=== PATIENT | female | born 1960 | race Caucasian/White ===

== ENCOUNTER 2025-03-09 06:35 | Observation (INO) | payer MEDICARE, MEDICAID ==
[~2025-03-09] VITALS: Ht 170.2 cm; Wt 68.2 kg
[2025-03-09 07:28] LABS: PLATELET COUNT (AUTO) 214 K/uL (150-450); RED BLOOD CELL COUNT(AUTO) 3.58 MIL/uL (4.00-5.20); RED CELL DISTRIBUTION WIDTH 13.3 % (11.5-14.5); WHITE BLOOD COUNT (AUTO) 5.3 K/uL (4.5-11.0)
[2025-03-09] MEDS: METOCLOPRAMIDE HCL 5 MG/ML 2 ML VIAL IVP ONE (07:29)
[2025-03-09] MEDS: SODIUM CHLORIDE 0.9% 1,000 ML IV ONE ×2 (07:29→12:16)
[2025-03-09 07:34] LABS: CALCIUM, TOTAL 8.5 mg/dL (8.8-10.5); CREATININE 1.60 mg/dL (0.60-1.30); GLOMERULAR FILTR. RATE CALC 32 mL/min (>60); GLUCOSE,RANDOM 171 mg/dL (70-110); SODIUM SERUM 137 mmol/L (136-145); UREA NITROGEN, BLOOD 33 mg/dL (7-18)
[2025-03-09 07:41] LABS: ASPARTATE AMINOTRANSFERASE 38.0 U/L (15-37); TOTAL PROTEIN, SERUM 6.8 g/dL (6.4-8.2)
[2025-03-09 07:46] LABS: TROPONIN I-HIGH SENSITIVITY 42 ng/L (<51)
[2025-03-09] MEDS ORDERED: SODIUM CHLORIDE 0.9% 1,000 ML IV ONE (10:15)
[2025-03-09] MEDS ORDERED: MAGNESIUM HYDROXIDE SUSPENSION 30 ML UDCUP PO PRN (10:15)
[2025-03-09] MEDS: SODIUM CHLORIDE 0.9% 1,000 ML IV SCH (10:30)
[2025-03-09] MEDS ORDERED: ALBUTEROL SULFATE 2.5 MG/0.5 ML NEB SOLUTION NEB PRN (10:45)
[2025-03-09 11:05] VITALS: BP 149/86; PULSE 95; RESP 20; TEMP 97.3; O2SAT 98
[2025-03-09] MEDS: ONDANSETRON HCL 4 MG/2 ML VIAL IVP PRN (12:15)
[2025-03-09] MEDS: METOCLOPRAMIDE HCL 5 MG/ML 2 ML VIAL IVP PRN (13:10)
[2025-03-09 16:00] VITALS: BP 132/88; PULSE 98; RESP 20; TEMP 98.2; O2SAT 97
[2025-03-09] MEDS: HEPARIN SODIUM,PORCINE 5,000 UNITS/ML VIAL SQ SCH (16:06)
[2025-03-09 20:29] VITALS: BP 119/81; PULSE 96; RESP 18; TEMP 98.1; O2SAT 96
[2025-03-10 04:46] VITALS: BP 146/84; PULSE 91; RESP 18; TEMP 97.5; O2SAT 97
[2025-03-10] MEDS: ACETAMINOPHEN 325 MG TABLET PO PRN (04:50)
[2025-03-10 08:02] VITALS: BP 132/86; PULSE 90; RESP 20; TEMP 98.4; O2SAT 95
[2025-03-10] MEDS: PANTOPRAZOLE SODIUM 40 MG/VIAL IVP SCH (09:03)
== END 2025-03-10 09:33 | disposition home or self-care (01) ==
LOC: EMS 06:35 → INTOOBSV 10:12 → EDH 10:12 → 4E 11:57
PROVIDERS: ADMIT Internal Medicine; ATTEND Internal Medicine
DX: R11.2 Nausea with vomiting, unspecified (principal); C22.9 Malignant neoplasm of liver, not specified as primary or secondary; C34.90 Malignant neoplasm of unspecified part of unspecified bronchus or lung; J44.9 Chronic obstructive pulmonary disease, unspecified; F31.9 Bipolar disorder, unspecified; I12.9 Hypertensive chronic kidney disease with stage 1 through stage 4 chronic kidney disease, or unspecified chronic kidney disease; N18.9 Chronic kidney disease, unspecified; N17.9 Acute kidney failure, unspecified; Z96.649 Presence of unspecified artificial hip joint; Z87.891 Personal history of nicotine dependence; Z79.899 Other long term (current) drug therapy; Z98.890 Other specified postprocedural states
CPT/HCPCS: 99219 ×2; 96372 ×2; 96361 ×3; 80048; 80076; 83690; 84484; 85025; 36415; 71045; 96375 ×3; 96376 ×2; 99285; 93005; 96374; J1630; J2765; J2405 ×2; J1644 ×2; J7030; J2470; G0378

== ENCOUNTER 2025-03-14 19:02 | Inpatient (IN) | payer MEDICARE, MEDICAID ==
[~2025-03-14] VITALS: Ht 172.7 cm; Wt 68.9 kg
[2025-03-14] MEDS ORDERED: 0.9% SODIUM CHLORIDE 10 ML SYRINGE IVP PRN (19:15)
[2025-03-14] MEDS: SODIUM CHLORIDE 0.9% 1,950 ML IV ONE (19:34)
[2025-03-14] MEDS: ACETAMINOPHEN 1000 MG/ISO-OSM 100 ML IV ONE (19:34)
[2025-03-14] MEDS: CEFEPIME HCL 2 GM in DEXTROSE 5%-WATER 50 ML IV ONE (19:39)
[2025-03-14] MEDS: VANCOMYCIN 1.25 GM/WATER(PEG) 250 ML IV ONE (19:39)
[2025-03-14 19:47] LABS: RED BLOOD CELL COUNT(AUTO) 2.75 MIL/uL (4.00-5.20); RED CELL DISTRIBUTION WIDTH 13.3 % (11.5-14.5)
[2025-03-14 19:55] LABS: CALCIUM, TOTAL 8.2 mg/dL (8.8-10.5); CREATININE 1.56 mg/dL (0.60-1.30); GLOMERULAR FILTR. RATE CALC 33 mL/min (>60); GLUCOSE,RANDOM 123 mg/dL (70-110); SODIUM SERUM 135 mmol/L (136-145); UREA NITROGEN, BLOOD 24 mg/dL (7-18)
[2025-03-14 19:57] LABS: PLATELET COUNT (AUTO) 18 K/uL (150-450); WHITE BLOOD COUNT (AUTO) 0.6 K/uL (4.5-11.0)
[2025-03-14 20:02] LABS: ASPARTATE AMINOTRANSFERASE 47 U/L (15-37); CREATINE KINASE, TOTAL ONLY 39 U/L (26-192); TOTAL PROTEIN, SERUM 5.9 g/dL (6.4-8.2)
[2025-03-14 20:06] LABS: LACTIC ACID 1.0 mmol/L (0.4-2.0); TROPONIN I-HIGH SENSITIVITY 9 ng/L (<51)
[2025-03-14 20:16] LABS: BAND NEUTROPHILS % (MANUAL) 4 % (0-5); LYMPHOCYTES % (MANUAL) 65 % (22-44); MONOCYTES % (MANUAL) 5 % (2-9); SEGMENTED NEUTROPHILS % 26 % (40-70)
[2025-03-14 20:28] LABS: INFLUENZA TYPE A NEGATIVE FOR TYPE A (NEGATIVE); INFLUENZA TYPE B NEGATIVE FOR TYPE B (NEGATIVE)
[2025-03-15 00:30] VITALS: BP 94/59; PULSE 78; RESP 18; TEMP 98.1; O2SAT 97
[2025-03-15] MEDS: *CLINICAL-CEFEPIME DOSING CLINICAL ONE (01:41)
[2025-03-15] MEDS ORDERED: ALBUTEROL SULFATE 2.5 MG/0.5 ML NEB SOLUTION NEB PRN (01:45)
[2025-03-15] MEDS ORDERED: BISACODYL 10 MG RECTAL RECTAL SUPPOSITORY PR PRN (01:45)
[2025-03-15] MEDS ORDERED: MAGNESIUM HYDROXIDE SUSPENSION 30 ML UDCUP PO PRN (01:45)
[2025-03-15] MEDS ORDERED: ZOLPIDEM TARTRATE 5 MG TABLET PO PRN (01:45)
[2025-03-15] MEDS ORDERED: ACETAMINOPHEN 325 MG TABLET PO PRN (01:45)
[2025-03-15] MEDS ORDERED: HYDROCODONE/ACETAMINOPHEN 5-325 MG TABLET PO PRN (01:45)
[2025-03-15] MEDS ORDERED: IPRATROPIUM BROMIDE 0.5 MG/2.5 ML NEB SOLUTION NEB PRN (01:45)
[2025-03-15] MEDS ORDERED: MORPHINE SULFATE 4 MG/ML SYRINGE IVP PRN (01:45)
[2025-03-15 04:30] VITALS: BP 113/70; PULSE 92; RESP 18; TEMP 98.7; O2SAT 97
[2025-03-15 06:29] LABS: CALCIUM, TOTAL 7.6 mg/dL (8.8-10.5); CREATININE 1.56 mg/dL (0.60-1.30); GLOMERULAR FILTR. RATE CALC 33.0 mL/min (>60); GLUCOSE,RANDOM 131.0 mg/dL (70-110); SODIUM SERUM 136.0 mmol/L (136-145); UREA NITROGEN, BLOOD 22.0 mg/dL (7-18)
[2025-03-15 09:02] VITALS: BP 105/58; PULSE 89; RESP 18; TEMP 98.4; O2SAT 98
[2025-03-15] MEDS ORDERED: SODIUM CHLORIDE 0.9% 250 ML IV ONE (10:16)
[2025-03-15] MEDS: DOCUSATE SODIUM 100 MG CAPSULE PO SCH (10:21)
[2025-03-15] MEDS: PANTOPRAZOLE SODIUM 40 MG/VIAL IVP SCH (10:22)
[2025-03-15] MEDS: HEPARIN SODIUM,PORCINE 5,000 UNITS/ML VIAL SQ SCH (10:22)
[2025-03-15] MEDS: CEFEPIME HCL 2 GM in DEXTROSE 5%-WATER 50 ML IV SCH (10:23)
[2025-03-15] MEDS: VANCOMYCIN 1GM/WATER(PEG/NADA) 200 ML IV SCH (11:57)
[2025-03-15 12:26] VITALS: BP 102/63; PULSE 90; RESP 18; TEMP 98.6; O2SAT 95
[2025-03-15 16:14] VITALS: BP 121/79; PULSE 103; RESP 18; TEMP 98.2; O2SAT 97
[2025-03-15 20:00] VITALS: BP 97/64; PULSE 92; RESP 18; TEMP 98.2; O2SAT 95
[2025-03-15] MEDS: ONDANSETRON HCL 4 MG/2 ML VIAL IVP PRN (20:38)
[2025-03-16] VITALS: BP 93/55; PULSE 94; RESP 18; TEMP 98.6; O2SAT 95
[2025-03-16 04:00] VITALS: BP 112/76; PULSE 75; RESP 18; TEMP 98.6; O2SAT 95
[2025-03-16 08:03] LABS: CALCIUM, TOTAL 8.1 mg/dL (8.8-10.5); CREATININE 1.62 mg/dL (0.60-1.30); GLOMERULAR FILTR. RATE CALC 32.0 mL/min (>60); GLUCOSE,RANDOM 109.0 mg/dL (70-110); SODIUM SERUM 136.0 mmol/L (136-145); UREA NITROGEN, BLOOD 21.0 mg/dL (7-18)
[2025-03-16 09:00] VITALS: BP 136/82; PULSE 98; RESP 18; TEMP 97.5; O2SAT 96
[2025-03-16 09:51] LABS: PLATELET COUNT (AUTO) 24 K/uL (150-450); RED BLOOD CELL COUNT(AUTO) 2.58 MIL/uL (4.00-5.20); RED CELL DISTRIBUTION WIDTH 13.4 % (11.5-14.5); WHITE BLOOD COUNT (AUTO) 1.4 K/uL (4.5-11.0)
[2025-03-16 09:53] LABS: ASPARTATE AMINOTRANSFERASE 29.0 U/L (15-37); TOTAL PROTEIN, SERUM 5.6 g/dL (6.4-8.2)
[2025-03-16 10:01] LABS: INFLUENZA A-RTPCR,COMBO NEGATIVE (NEGATIVE); INFLUENZA B-RTPCR,COMBO NEGATIVE (NEGATIVE); RESPIRATORY SYNCYTIAL VRS-PCR NEGATIVE (NEGATIVE); SARS COVID19 RTPCR, COMBO NEGATIVE (NEGATIVE)
[2025-03-16 10:13] LABS: BAND NEUTROPHILS % (MANUAL) 3 % (0-5); LYMPHOCYTES % (MANUAL) 32 % (22-44); RBC MORPHOLOGY COMMENT NORMAL RBC MORPH; SEGMENTED NEUTROPHILS % 65 % (40-70)
[2025-03-16 11:41] VITALS: BP 118/65; PULSE 96; RESP 18; TEMP 97.7; O2SAT 95
== END 2025-03-16 11:35 | disposition home or self-care (01) | DRG 73 ==
LOC: EMS 19:02 → EDH 21:01 → 5N 22:45
PROVIDERS: ADMIT Hospitalist; ATTEND Hospitalist
DX: G90.89 Other disorders of autonomic nervous system (principal); E43 Unspecified severe protein-calorie malnutrition; J15.69 Pneumonia due to other Gram-negative bacteria; J18.9 Pneumonia, unspecified organism; C78.7 Secondary malignant neoplasm of liver and intrahepatic bile duct; D61.818 Other pancytopenia; D69.6 Thrombocytopenia, unspecified; D70.9 Neutropenia, unspecified; C34.90 Malignant neoplasm of unspecified part of unspecified bronchus or lung; I10 Essential (primary) hypertension; Z96.649 Presence of unspecified artificial hip joint; I95.9 Hypotension, unspecified; R55 Syncope and collapse; Z20.822 Contact with and (suspected) exposure to COVID-19; R50.81 Fever presenting with conditions classified elsewhere; Z72.0 Tobacco use; Z85.05 Personal history of malignant neoplasm of liver; Z85.118 Personal history of other malignant neoplasm of bronchus and lung; Z79.899 Other long term (current) drug therapy; Z68.23 Body mass index [BMI] 23.0-23.9, adult
CPT/HCPCS: 71045; 80048; 80076; 82550; 83605; 83880; 84145; 84484; 85025; 85610; 86850; 86900; 86901; 87040; 87637; 87804; 93005; 97162; 97530; 99285; J0131; J0692; J1644; J2405; J2470; J7030; J7050; J7060; 36415-L1; 36415-TC